=== PATIENT | male | born 1990 ===

== ENCOUNTER 2023-01-08 07:39 | Day surgery (SDC) | payer BC, SELFPAY ==
[2023-01-08] MEDS: LACTATED RINGERS 1,000 ML 200 ML IV (07:59)
[2023-01-08 08:02] VITALS: BP 125/80; PULSE 76; RESP 16; TEMP 36.4; O2SAT 99; BMI 33.6
--- NOTE | 2023-01-08 08:42 | P.HP_ITS ---
History of Present Illness History of Present Illness Date Patient Seen: 01/08/23 Time Patient Seen: 08:42 Chief complaint: Dx Colonoscopy w/band ligation Narrative: 32M with rectal bleeding here for diagnostic colonoscopy and hemorrhoidal banding. No interval change please refer to the H and P from November 2022 [facility] Medical History Anxiety Fatigue Heterozygous thalassemia Insomnia Obesity (BMI 30-39.9) Obstructive sleep apnea Snoring Family History Family/Other Loud snoring Mother Loud snoring Heart disease Depression Anxiety Social History household members: spouse Smoking Status: Former smoker alcohol intake: former Meds Home Medications and Allergies Home Medications Medication Instructions Recorded Confirmed Type sertraline 50 mg tablet 50 mg PO DAILY 11/29/22 01/08/23 History disulfiram 250 mg tablet 250 mg PO DAILY 01/08/23 01/08/23 History Allergies Allergy/AdvReac Type Severity Reaction Status Date / Time Sulfa (Sulfonamide AdvReac Unknown Verified 01/08/23 07:50 Antibiotics) Exam Vital Signs (past 8 hours): - 01/08/23 08:02 Temperature 97.6 F Pulse Rate 76 Respiratory Rate 16 Blood Pressure 125/80 Pulse Oximetry 99 Oxygen Delivery Method Room Air Oxygen Delivery Method Room Air Narrative Exam Narrative: General adult man alert oriented no acute distress Abdomen soft nontender nondistended Assessment & Plan Assessment and plan (1) Rectal bleeding: Status: Acute Assessment & Plan narrative: The patient requires colorectal screening and colonoscopy is recommended. Technical details were discussed. Risks, benefits, alternatives explained. Risks including but not limited to myocardial infarction, aspiration, bleeding, pain, missed lesion, incomplete examination, need for further radiographic studies, colonic perforation, and need for major abdominal surgery were discussed. All questions were answered to their satisfaction, and they are in agreement with this plan.
[2023-01-08 09:09] VITALS: BP 94/58; PULSE 70; RESP 20; TEMP 36.6; O2SAT 92
[2023-01-08 09:14] VITALS: BP 91/57; PULSE 66; RESP 20; O2SAT 93
--- NOTE | 2023-01-08 09:14 | P.OP.COLON_ITS ---
Operative Date/Time/Diagnoses Date of procedure: 01/08/23 Time of procedure: 09:14 Pre-op diagnosis: Rectal bleeding Post-op diagnosis: same Procedure & Clinicians Study performed: Colonoscopy and hemorrhoidal banding x2 Same procedure as scheduled: Yes Indications: 32-year-old male with rectal bleeding here for diagnostic colonoscopy and po ssible hemorrhoidal banding. Surgeon: Rob Rajput Procedure Notes Procedure in detail: The history and physical was performed/updated and the patient is ASA class is 1. The procedure was discussed in detail with the patient. Potential risks complications including infection, bleeding, missed diagnosis, perforation, need for surgery, and were explained. Their questions were answered and informed consent was obtained. Patient was brought to the procedure room and placed standard monitoring equipment. The patient's vital signs were monitored continuously throughout the entire procedure. Prior to starting time-out was performed. The patient was placed in the left lateral recumbent position. Procedural sedation was administered by anesthesia. Examination began with a thorough inspection of the perianal area there was no evidence of fissures, fistulae, external hemorrhoids or cutaneous malignancy. The colonoscopy scope was then placed into the anal canal and was advanced to the cecum, which was identified by the ileocecal valve, the appendiceal orifice and the confluence of the taenia. The scope was then slowly withdrawn examining colon thoroughly in all directions, irrigating it of any residual stool. Normal healthy colon. No masses polyps or inflammation. Rectum-grade 1 internal hemorrhoids The patient tolerated the procedure well. They will be discharged once criteria are met. The prep was of good/excellent quality. The withdrawl time was 6 minutes. Following completion of the colonoscopy hemorrhoidal banding was performed. Anoscope was placed and examination demonstrates grade 1 internal hemorrhoids of the left lateral and right posterior pedicles. Each pedicle was grasped with the suction and doubly ligated at their base. He tolerated the procedure well and was returned to recovery in stable condition. Specimen(s): none sent Impression: Internal hemorrhoids banded Post-procedure Recommendations: High fiber diet Plan for aftercare: Tylenol ibuprofen pain control Sitz bath 1-2 times daily for the next week Disposition: same day surgery
[2023-01-08 09:19] VITALS: BP 109/73; PULSE 70; RESP 24; O2SAT 95
[2023-01-08 09:23] VITALS: BP 104/76; PULSE 70; RESP 16; TEMP 36.7; O2SAT 95
== END 2023-01-08 09:37 | disposition home or self-care (01) ==
PROVIDERS: PCP Family Medicine; Referring Provider Surgery; Visit Provider Surgery
PROC: 0DJD8ZZ Inspection of Lower Intestinal Tract, Via Natural or Artificial Opening Endoscopic (ICD-10-PCS; CPT 45378; principal; 2023-01-08 08:45)
DX: K62.5 Hemorrhage of anus and rectum (principal); K64.0 First degree hemorrhoids
CPT/HCPCS: 45378; 46221; J2704

== ENCOUNTER 2023-07-24 13:02 | Day surgery (SDC) | payer BC, SELFPAY ==
--- NOTE | 2023-07-23 15:26 | PM.HP.1 ---
History of Present Illness History of Present Illness Date Patient Seen: 07/24/23 Time Patient Seen: 13:38 Chief complaint: Hemorrhoid Banding Narrative: 32-year-old healthy male with a history of hemorrhoid disease here for banding of internal hemorrhoids under anesthesia. No interval changes in health since last seen. [facility] Medical History Heterozygous thalassemia Anxiety Obstructive sleep apnea Obesity (BMI 30-39.9) Snoring Insomnia Fatigue Family History Family/Other Loud snoring Mother Loud snoring Heart disease Depression Anxiety Social History household members: spouse Smoking Status: Former smoker alcohol intake: former Meds Home Medications and Allergies Home Medications Medication Instructions Recorded Confirmed Type sertraline 50 mg tablet 50 mg PO DAILY 11/29/22 05/10/23 History acetaminophen 325 mg capsule 650 mg (2 x 325 mg) PO QID PRN 01/08/23 05/10/23 Rx (Tylenol) pain #60 caps disulfiram 250 mg tablet 250 mg PO DAILY 01/08/23 05/10/23 History docusate sodium 100 mg capsule 100 mg PO BID #30 caps 01/08/23 05/10/23 Rx (Colace) ibuprofen 200 mg tablet 400 mg (2 x 200 mg) PO Q6H #60 tabs 01/08/23 05/10/23 Rx Allergies Allergy/AdvReac Type Severity Reaction Status Date / Time Sulfa (Sulfonamide AdvReac Unknown Verified 05/10/23 14:55 Antibiotics) Exam Narrative Exam Narrative: General adult man alert oriented no acute distress Chest nonlabored respiration Extremities warm well perfused Assessment & Plan Assessment and plan (1) Internal hemorrhoids: Status: Acute Assessment & Plan narrative: 32-year-old male past medical history ROXANNE, hemorrhoids here for banding of internal hemorrhoids under anesthesia. We reviewed the procedure in detail. Procedural risks including but not limited to hemorrhage, pain, recurrence were discussed. He provides his written and verbal consent to proceed
[2023-07-24 13:25] VITALS: BP 124/71; PULSE 64; RESP 18; TEMP 36.6; O2SAT 97; BMI 33.6
[2023-07-24] MEDS: ACETAMINOPHEN 325 MG TABLET 975 MG PO (13:51)
[2023-07-24] MEDS: LACTATED RINGERS 1,000 ML 42 ML IV (14:04)
[2023-07-24 14:11] VITALS: BP 109/56; PULSE 68; RESP 14; TEMP 36.6; O2SAT 95
[2023-07-24 14:16] VITALS: BP 110/73; PULSE 63; RESP 16; O2SAT 97
[2023-07-24 14:22] VITALS: BP 110/69; PULSE 64; RESP 15; O2SAT 97
[2023-07-24 14:32] VITALS: BP 110/69; PULSE 71; RESP 14; TEMP 36.6; O2SAT 99
--- NOTE | 2023-07-24 14:32 | PM.OP.1 ---
Operative Date/Time/Diagnoses Date of procedure: 07/24/23 Time of procedure: 14:32 Pre-op diagnosis: Internal hemorrhoids Post-op diagnosis: same Procedure & Clinicians Procedure: Hemorrhoidal banding x2 Same procedure as scheduled: Yes Indications: Luis is a 32-year-old man history of hemorrhoids who is undergone 1 previous hemorrhoidal banding. He continues to have symptomatic hemorrhoids and is here for further banding. Surgeon: Rob Rajput Click Yes if Unassisted: Yes Anesthesia Type: Sedation Operative Notes Findings: Grade 2 hemorrhoids left lateral and right posterior Specimen(s): none sent Estimated Blood Loss (mL): 5 Procedure in detail: Patient was brought to the operating room placed supine on on stretcher. Anesthesia was induced and he was sedated. Time-out was performed. Lubricated anoscope was placed and exam was performed which demonstrated grade 2 hemorrhoids of the left lateral and right posterior columns. Each column was lifted using suction and then doubly ligated at its base. He tolerated the procedure well was transferred to recovery in stable condition. Complications: none Post-operative Condition: stable Disposition: same day surgery
== END 2023-07-24 14:45 | disposition home or self-care (01) ==
PROVIDERS: PCP Family Medicine; Referring Provider Surgery; Visit Provider Surgery
PROC: 0DJD8ZZ Inspection of Lower Intestinal Tract, Via Natural or Artificial Opening Endoscopic (ICD-10-PCS; CPT 45378; principal; 2023-07-24 14:15)
DX: K64.1 Second degree hemorrhoids (principal)
CPT/HCPCS: 46221; 82962; J1100; J1170; J2405; J2704

== ENCOUNTER 2023-11-01 23:06 | Observation (INO) | payer BC, SELFPAY ==
[2023-11-01 23:13] VITALS: BP 144/82; PULSE 87; TEMP 36.9; O2SAT 94; BMI 33.6
[2023-11-01 23:51] LABS: Add Manual Diff / Slide Review NO; Basophils Absolute Auto 0 /uL (0-100); Basophils Percent Auto 0.1 % (0-2); Eosinophils Absolute Auto 100 /uL (0-450); Eosinophils Percent Auto 0.7 % (2-4); Hematocrit 38.3 % (41-53); Hemoglobin 12.2 g/dL (13.5-17.5); Lymphocytes Absolute Auto 1400 /uL (1100-4500); Lymphocytes Percent Auto 8.8 % (25-40); Mean Corpuscular Hemoglobin 19.4 PG (26-34); Mean Corpuscular Volume 60.8 fL (80-100); Monocytes Absolute Auto 800 /uL (0-900); Neutrophils Absolute Auto 13200 /uL (1500-7000); Neutrophils Percent Auto 85.4 % (50-75); Platelet Count 291 X10^3/uL (150-400); Red Blood Cell Count 6.29 X10^6/uL (4.5-5.9); White Blood Cell Count 15.5 X10^3/uL (4.5-11.0)
[2023-11-02] VITALS (14 sets, daily range): BP systolic 110–137; BP diastolic 65–85; PULSE 61–84; RESP 12–18; TEMP 36.4–37.1; O2SAT 93–100; BMI 32.8
--- NOTE | 2023-11-02 | PATH_ITS ---
[facility] Accession Number: [id number] No. of containers..01 Tissue . 01 Material submitted: . appendix - APPENDIX . 01 Diagnosis: APPENDIX, APPENDECTOMY: Acute appendicitis. No evidence of neoplasm. [facility] 11/06/2023 1259 Local . 01 Electronically signed: . Mark Franco MD, PhD, Pathologist NPI- [id number] . 01 Gross description: . Received in formalin with two identifiers and appendix, is a parada vermiform appendix 6.3 x 0.8 cm with mesoappendix extending out to 2.5 cm. The serosa is parada and smooth with slightly dilated vasculature. The margin is inked blue. Sectioning reveals the lumen to be patent and filled with red-brown semi-solid material and averaging 0.2 cm in diameter. The hurley average 0.4 cm thick with no perforation or lesions identified. Ladle Cleaner sections to include the margin, one-half of the bisected distal tip, and cross-sections are submitted in cassette A1. ([id number] n [id number]) /MARCIA 11/05/2023 0910 Local . 01 Pathologist provided ICD-10: K35.80 . 01 CPT . 362915 Specimen Comment: A courtesy copy of this report has been sent to [phone] Performed at: [address] [facility] [address], [place], [place] [id number] MD Denis Thomas MD Phone: [phone]
[2023-11-02 00:07] LABS: Alanine Aminotransferase 26 IU/L (<50); Albumin 4.9 g/dL (3.5-5.0); Albumin Globulin Ratio 1.4 (1.0-2.8); Alkaline Phosphatase 89 U/L (38-126); Aspartate Aminotransferase 29 IU/L (17-59); BUN Creatinine Ratio 17.3 (6-22); Blood Urea Nitrogen 14 mg/dL (9-20); Carbon Dioxide 22 mmol/L (22-32); Chloride 108 mmol/L (98-107); Estimated Glomerular Filt Rate > 60 mL/min (>60); Globulin 3.5 g/dL (1.7-4.1); Glucose 103 mg/dL (70-100); HEMOLYSIS < 15 (0-50); Lipase 48 U/L (23-300); Potassium 4.1 mmol/L (3.4-5.1); Sodium 138 mmol/L (137-145); Total Protein 8.4 g/dL (6.3-8.2)
[2023-11-02 00:18] LABS: Anisocytosis 2+; Macrocytosis 1+; Microcytosis 1+; Platelet Estimate Adequate on smear; Target Cells 1+
--- NOTE | 2023-11-02 02:21 | ED_ITS ---
HPI - Abdominal Pain General Chief Complaint: Abdominal Pain Stated Complaint: ABD and rt side pain Time Seen by Provider: 11/02/23 00:50 Source: patient Mode of arrival: Ambulatory History of Present Illness HPI narrative: 32-year-old without history of prior abdominal pelvic surgeries, complains of central abdominal pain onset approximately 5:30 p.m. yesterday, became more right-sided last few hours, more in the right upper quadrant now. No known history of appendix problems. No gallbladder problems known. No history of kidney stones. No dysuria or frequency of urination. No new activities, trauma, lifting. Denies cough fever chills shortness of breath. No associated nausea or vomiting. Last bowel movement yesterday unremarkable. No black or red stools. No loose stools. No history of constipation. No history of Crohn's disease, inflammatory bowel disease. Could not tried any specific treatment, pain slightly improved but still present. Related Data Home Medications Medication Instructions Recorded Confirmed sertraline 50 mg tablet 100 mg PO DAILY 11/29/22 11/02/23 Previous Rx's Medication Instructions Recorded acetaminophen 325 mg capsule 650 mg (2 x 325 mg) PO QID PRN 07/24/23 (Tylenol) pain #60 caps ibuprofen 200 mg tablet 400 mg (2 x 200 mg) PO Q6H #60 tabs 07/24/23 celecoxib 200 mg capsule (Celebrex) 200 mg PO BID #20 caps 11/02/23 docusate sodium 100 mg capsule 100 mg PO BID #30 caps 11/02/23 (Colace) oxycodone 5 mg tablet 5 mg PO Q6H PRN pain #20 tabs 11/02/23 Allergies Allergy/AdvReac Type Severity Reaction Status Date / Time Sulfa (Sulfonamide AdvReac Unknown Verified 05/10/23 14:55 Antibiotics) Review of Systems Review of Systems Narrative: Per HPI Patient History Medical History Heterozygous thalassemia Anxiety Obstructive sleep apnea Obesity (BMI 30-39.9) Snoring Insomnia Fatigue Family History Family/Other Loud snoring Mother Loud snoring Heart disease Depression Anxiety Social History household members: spouse Smoking Status: Former smoker alcohol intake: former Smoking Status: Former smoker alcohol intake frequency: a few times a week Substance Use Type: marijuana Exam Narrative Exam Narrative: GENERAL: Well-developed patient, in mild distress. HEAD: Atraumatic. Normocephalic. EYES: Pupils equal round and reactive. Extraocular motions intact. No scleral icterus. No injection or drainage. ENT: Nose without bleeding, purulent drainage. Throat without erythema, tonsillar hypertrophy or exudate. Airway patent. NECK: Trachea midline. Non tender CARDIOVASCULAR: Regular rate and rhythm without murmurs, gallops, or rubs. RESPIRATORY: Clear to auscultation. Breath sounds equal bilaterally. No wheezes, rales, or rhonchi. GASTROINTESTINAL: Some tenderness right middle quadrant abdomen, right upper quadrant abdomen, less so right lower quadrant. No tenderness epigastrium or periumbilical or left-sided. No guarding or rebound tenderness. No obvious fluid wave. EXTREMITIES: No edema or joint tenderness. BACK: Nontender without deformity or crepitance. No flank tenderness. NEURO: AOx3. SKIN: No rash or erythema of visible areas Initial Vital Signs Initial Vital Signs: Vital Signs Temperature 98.4 F 11/01/23 23:13 Pulse Rate 87 11/01/23 23:13 Blood Pressure 144/82 H 11/01/23 23:13 Pulse Oximetry 94 11/01/23 23:13 Oxygen Delivery Method Room Air 11/01/23 23:13 Course Orders Ordered: Discontinued Medications Acetaminophen (Acetaminophen 325 Mg Tablet) 650 mg PO Q6H PRN PRN Reason: Fever/Mild Pain (1-3) Bupivacaine HCl (Bupivacaine 0.25% (Pf) Vial) 30 ml INJ NOW ONE Stop: 11/02/23 11:27 Last Admin: 11/02/23 11:26 Dose: 30 ml Documented By: REJI Dexamethasone (Dexamethasone 10 Mg/Ml Vial) 8 mg IV NOW PRN PRN Reason: Nausea And Vomiting Fentanyl (Fentanyl 100 Mcg/2 Ml Inj) 0 mcg IV Q5MIN PRN PRN Reason: Pain, Severe (7-10) Fentanyl (Fentanyl 100 Mcg/2 Ml Inj) 0 mcg IV Q5M PRN PRN Reason: Pain, Moderate (4-6) Hydromorphone HCl (Hydromorphone 0.5 Mg Inj) 0.5 mg IV Q2H PRN PRN Reason: Pain, Severe (7-10) Hydromorphone HCl (Hydromorphone 1 Mg Inj) 0 mg IV Q5MIN PRN PRN Reason: Pain, Mild (1-3) Hydromorphone HCl (Hydromorphone 1 Mg Inj) 0 mg IV Q5MIN PRN PRN Reason: Pain, Moderate (4-6) Piperacillin Sod/Tazobactam (Sod 4.5 gm/ Sodium Chloride) 100 mls @ 200 mls/hr IV NOW ONE Stop: 11/02/23 05:09 Last Infusion: 11/02/23 06:12 Dose: Infused Documented By: Admin: 11/02/23 05:42 Dose: 200 mls/hr Documented By: STORMY Piperacillin Sod/Tazobactam (Sod 3.375 gm/ Sodium Chloride) 100 mls @ 200 mls/hr IV NOW ONE Stop: 11/02/23 11:14 Last Infusion: 11/02/23 11:15 Dose: Infused Documented By: Admin: 11/02/23 11:10 Dose: 200 mls/hr Documented By: TOSHIA Lactated Ringer's (Lactated Ringers) 1,000 mls @ 42 mls/hr IV NOW ONE Stop: 11/03/23 10:38 Last Infusion: 11/02/23 12:18 Dose: Infused Documented By: Admin: 11/02/23 10:50 Dose: 42 mls/hr Documented By: CALOS Acetaminophen (Ofirmev) 1,000 mg in 100 mls @ 400 mls/hr IV NOW ONE Stop: 11/02/23 11:55 Last Admin: 11/02/23 12:15 Dose: 400 mls/hr Documented By: CALOS Ibuprofen (Ibuprofen 600 Mg Tablet) 600 mg PO Q6H PRN PRN Reason: Fever/Mild Pain (1-3) Metoclopramide HCl (Metoclopramide 10 Mg/2 Ml Inj) 10 mg IV NOW PRN PRN Reason: Nausea And Vomiting Naloxone HCl (Naloxone 0.4 Mg/Ml Vial) 0.2 mg IV Q2MIN PRN PRN Reason: Opiate Reversal Ondansetron HCl (Ondansetron 4 Mg/2 Ml Inj) 4 mg IV NOW PRN PRN Reason: Nausea And Vomiting Ondansetron HCl (Ondansetron 4 Mg Odt) 4 mg PO NOW PRN PRN Reason: Nausea And Vomiting Ondansetron HCl (Ondansetron 4 Mg/2 Ml Inj) 4 mg IV NOW PRN PRN Reason: Nausea And Vomiting Oxycodone HCl (Oxycodone Ir 5 Mg Tablet) 5 mg PO Q3H PRN PRN Reason: Pain, Moderate (4-6) Oxycodone HCl (Oxycodone Ir 5 Mg Tablet) 10 mg PO PACUNOW PRN PRN Reason: Mild or moderate pain Vital Signs Vital signs: Vital Signs - 8 hr 11/01/23 23:13 11/02/23 01:00 11/02/23 02:00 Temperature 98.4 F 98.0 F Pulse Rate 87 82 69 Respiratory Rate 18 18 Blood Pressure 144/82 H 135/82 137/82 Pulse Oximetry 94 99 100 Oxygen Delivery Method Room Air Room Air Room Air 11/02/23 03:16 Temperature Pulse Rate 70 Respiratory Rate 18 Blood Pressure 130/79 Pulse Oximetry 99 Oxygen Delivery Method MDM - Abdominal Pain Lab Data Attestation: I reviewed the patient's lab results. Lab results narrative: White blood cell count 17297, chemistries unremarkable, LFTs normal, urine dip negative 11/01/23 23:37 11/01/23 23:37 Labs: Lab Results 11/01/23 11/02/23 Range/Units 23:37 01:45 WBC 15.5 H (4.5-11.0) X10^3/uL RBC 6.29 H (4.5-5.9) X10^6/uL Hgb 12.2 L (13.5-17.5) g/dL Hct 38.3 L (41-53) % MCV 60.8 L (80-100) fL MCH 19.4 L (26-34) PG MCHC 32.0 (30-36) % RDW 17.0 H (11.6-14.8) % Plt Count 291 (150-400) X10^3/uL Neut % (Auto) 85.4 H (50-75) % Lymph % (Auto) 8.8 L (25-40) % [place] % (Auto) 5.0 (3-14) % Eos % (Auto) 0.7 L (2-4) % Baso % (Auto) 0.1 (0-2) % Neut # (Auto) 02544 H (8042-8661) /uL Lymph # (Auto) 1400 (0698-5629) /uL [place] # (Auto) 800 (0-900) /uL Eos # (Auto) 100 (0-450) /uL Baso # (Auto) 0 (0-100) /uL Platelet Estimate Adequate on smear RBC Morphology See below Anisocytosis 2+ H Microcytosis 1+ H Macrocytosis 1+ H Target Cells 1+ H Sodium 138 (137-145) mmol/L Potassium 4.1 (3.4-5.1) mmol/L Chloride 108 H (98-107) mmol/L Carbon Dioxide 22 (22-32) mmol/L BUN 14 (9-20) mg/dL Creatinine 0.81 (0.66-1.25) mg/dL Estimated GFR > 60 (>60) mL/min BUN/Creatinine Ratio 17.3 (6-22) Glucose 103 H (70-100) mg/dL Calcium 9.0 (8.4-10.2) mg/dL Total Bilirubin 1.0 (0.2-1.3) mg/dL AST 29 (17-59) IU/L ALT 26 (<50) IU/L Alkaline Phosphatase 89 (38-126) U/L Total Protein 8.4 H (6.3-8.2) g/dL Albumin 4.9 (3.5-5.0) g/dL Globulin 3.5 (1.7-4.1) g/dL Albumin/Globulin Ratio 1.4 (1.0-2.8) Lipase 48 (23-300) U/L Urine RBC None seen (0-5/HPF) Urine WBC None seen (0-5/HPF) Ur Squamous Epith Cells 0-1 /hpf (0-5/HPF) Urine Bacteria None seen (None) Ur Culture Indicated? Cult not indicated Vol Urine Centrifuged 10ml (spun) Point of care testing: Urine Dip Bedside Urine Glucose Negative Bedside Urine Bilirubin - Negative Bedside Urine Ketone +/- 5 Urine Specific [place] 1.025 Bedside Urine Occult Blood - Negative Bedside Urine pH 6.0 Bedside Urine Protein - Negative Bedside Urine Urobilinogen - Negative Bedside Urine Nitrite - Negative Bedside Urine Leukocytes - Negative Esterase MDM Narrative Medical decision making narrative: 32-year-old male with atraumatic abdominal pain, initially central, now more right-sided but in right upper quadrant. No known history of gallbladder problems or kidney stones, no prior abdominal pelvic surgeries. Some tenderness right upper quadrant current, some right middle quadrant, not in right lower quadrant. DX consider appendicitis, biliary colic, cholecystitis, urinary tract infection, ureteral stone, colitis, diverticulitis, constipation, adenitis, other. Renal function adequate, CT abdomen and pelvis ordered. Patient declines pain medication for now. Keep NPO CT abdomen and pelvis with IV contrast. Impressions: ?Fluid distended appendix measuring up to 11 mm in width. Subtle fat stranding in the vicinity of the appendiceal tip. No evidence of appendicolith. In the appropriate clinical context, findings are suggestive of acute uncomplicated appendicitis. ? See tele radiology report IV Zosyn ordered Report results discussed with patient, acute appendicitis suspected by imaging, some tenderness right middle quadrant, not really in right lower quadrant. We will contact surgery Case discussed with Dr. Rajput surgery, admit to his service. Keep NPO. Critical Care Time Critical Care Time Critical Care Time: Yes Total Critical Care Time: 35 Attestation: The high probability of a clinically significant, sudden or life threatening deterioration of the [abdominal pelvic, genitourinary] system(s) required my full and direct attention, intervention and personal management. The aggregate critical care time was [35] minutes. This time is in addition to time spent performing reported procedures but includes the following: [x] Data Review and interpretation [x] Patient assessment and monitoring of vital signs [x] Documentation [x] Medication orders and management Discharge Plan Departure Patient Disposition: Admitted as Observation Clinical Impression: Abdominal pain Acute appendicitis Qualifiers: Acute appendicitis type: unspecified acute appendicitis type Qualified Code(s): K35.80 - Unspecified acute appendicitis Admit Date/Time: 11/02/23 05:22 Admit Provider: Rob Rajput
--- NOTE | 2023-11-02 02:38 | DI.CT.S_ITS ---
PROCEDURE: CT ABDOMEN PELVIS W CON INDICATIONS: central->R abd pain, eval appy TECHNIQUE: After the administration of intravenous contrast, axial sections acquired from the lung bases to the pubic symphysis. Coronal and sagittal reformats were performed. For radiation dose reduction, the following was used: automated exposure control, adjustment of mA and/or kV according to patient size. COMPARISON: None. FINDINGS: Image quality: Diagnostic Lower chest: Unremarkable lung bases Liver: Unremarkable Gallbladder and biliary system: Unremarkable, nondilated Pancreas: No ductal dilation Spleen: Nonenlarged Adrenals: No discrete nodules Kidneys: No solid mass or hydronephrosis Vessels and lymph nodes: The main portal vein is patent. No abdominal aortic aneurysm. No pathologic lymph nodes by size criteria. Bowel and peritoneum: No evidence of small bowel obstruction. No pathologic ascites or drainable abscess. Mildly hyperemic appendix measuring 8-9 mm. Body wall: Small fat containing umbilical hernia Pelvis: Bladder is unremarkable. Prostate not well evaluated on this study Bones: No acute or suspicious osseous finding. IMPRESSION: Acute uncomplicated appendicitis. Agree with prelim report. No abscess or small bowel obstruction. Dictated by: Donato Marie M.D. on 11/02/2023 at 8:24 Approved by: Donato Marie M.D. on 11/02/2023 at 8:27
[2023-11-02 02:59] LABS: Bacteria Urine None Seen; Culture Indicated Urine Cult Not Indicated; RBC Urine None Seen (0-5/HPF); Squamous Epithelial Cell Urine 0-1 /HPF (0-5/HPF); Urine Volume 10mL (spun); WBC Urine None Seen (0-5/HPF)
[2023-11-02] MEDS: PIPERACILLIN/TAZO 4.5 GM in SODIUM CHLORIDE 0.9% 100 ML IV (05:42)
--- NOTE | 2023-11-02 10:10 | PC.NURSE ---
Patient picked up by OR nurse, alert/oriented x4,in no apparent distress.
--- NOTE | 2023-11-02 10:29 | P.HP_ITS ---
History of Present Illness History of Present Illness Date Patient Seen: 11/02/23 Chief complaint: ABD and rt side pain Narrative: Luis Tam is a 32-year-old man PMH ROXANNE with acute appendicitis. For the last several days he has had vague abdominal discomfort with associated fatigue and anorexia. Yesterday his pain became significantly worse primarily of the periumbilical area and finally migrating to the right lower quadrant. Presented to [facility] Emergency Department for further evaluation and initial workup was significant for leukocytosis, WBC [address] shift[address] A CT abdomen pelvis demonstrates acute appendicitis without abscess. No prior abdominal surgery. He has had prior orthopedic surgery which he tolerated without anesthetic or bleeding issues. [facility] Medical History Heterozygous thalassemia Anxiety Obstructive sleep apnea Obesity (BMI 30-39.9) Snoring Insomnia Fatigue Family History Family/Other Loud snoring Mother Loud snoring Heart disease Depression Anxiety Social History household members: spouse Smoking Status: Former smoker alcohol intake: former Meds Home Medications and Allergies Home Medications Medication Instructions Recorded Confirmed Type sertraline 50 mg tablet 100 mg PO DAILY 11/29/22 11/02/23 History acetaminophen 325 mg capsule 650 mg (2 x 325 mg) PO QID PRN 07/24/23 11/02/23 Rx (Tylenol) pain #60 caps ibuprofen 200 mg tablet 400 mg (2 x 200 mg) PO Q6H #60 tabs 07/24/23 11/02/23 Rx Allergies Allergy/AdvReac Type Severity Reaction Status Date / Time Sulfa (Sulfonamide AdvReac Unknown Verified 05/10/23 14:55 Antibiotics) Exam Vital Signs (past 8 hours): - 11/02/23 03:15 11/02/23 03:15 11/02/23 03:16 Temperature Pulse Rate 69 70 Respiratory Rate 18 Blood Pressure 130/79 130/79 Pulse Oximetry 97 99 Oxygen Delivery Method Oxygen Flow Rate 11/02/23 05:00 11/02/23 05:56 11/02/23 06:20 Temperature 98.7 F Pulse Rate 70 77 Respiratory Rate 17 16 Blood Pressure 130/78 126/82 Pulse Oximetry 100 95 Oxygen Delivery Method Room Air Room Air Room Air Oxygen Flow Rate 11/02/23 06:36 11/02/23 07:00 11/02/23 07:45 Temperature 98.1 F 97.5 F L Pulse Rate 61 61 Respiratory Rate 16 16 Blood Pressure 127/74 110/65 Pulse Oximetry 96 99 Oxygen Delivery Method Room Air Oxygen Flow Rate 0 Oxygen Delivery Method Room Air Oxygen Flow Rate 0 Narrative Exam Narrative: GENERAL: A well nourished, well developed adult man, resting comfortably, in no acute distress. HEENT: Normocephalic, atraumatic. No scleral icterus CHEST: Rising symmetrically. No audible wheezes CARDIOVASCULAR: Warm and well perfused. Regular rate ABDOMEN: Tender right lower quadrant without peritonitis EXTREMITIES: Normal tone and without edema. NEUROLOGIC: Moving all extremities spontaneously. No gross motor deficits. Objective Labs 11/01/23 23:37 11/01/23 23:37 Labs: Laboratory Results - last 24 hr 11/01/23 11/02/23 23:37 01:45 WBC 15.5 H RBC 6.29 H Hgb 12.2 L Hct 38.3 L MCV 60.8 L MCH 19.4 L MCHC 32.0 RDW 17.0 H Plt Count 291 Neut % (Auto) 85.4 H Lymph % (Auto) 8.8 L Hodgeman % (Auto) 5.0 Eos % (Auto) 0.7 L Baso % (Auto) 0.1 Neut # (Auto) 07328 H Lymph # (Auto) 1400 Hodgeman # (Auto) 800 Eos # (Auto) 100 Baso # (Auto) 0 Platelet Estimate Adequate on smear RBC Morphology See below Anisocytosis 2+ H Microcytosis 1+ H Macrocytosis 1+ H Target Cells 1+ H Sodium 138 Potassium 4.1 Chloride 108 H Carbon Dioxide 22 BUN 14 Creatinine 0.81 Estimated GFR > 60 BUN/Creatinine Ratio 17.3 Glucose 103 H Calcium 9.0 Total Bilirubin 1.0 AST 29 ALT 26 Alkaline Phosphatase 89 Total Protein 8.4 H Albumin 4.9 Globulin 3.5 Albumin/Globulin Ratio 1.4 Lipase 48 Urine RBC None seen Urine WBC None seen Ur Squamous Epith Cells 0-1 /hpf Urine Bacteria None seen Ur Culture Indicated? Cult not indicated Vol Urine Centrifuged 10ml (spun) Assessment & Plan Assessment and plan (1) Acute appendicitis: Problem details: 32M PMH ROXANNE with symptoms and radiographic findings consistent with acute uncomplicated appendicitis. Had a lengthy discussion with the patient and his significant other in regards to the management of acute appendicitis. We discussed both surgical therapy and medical management with antibiotic therapy. We talked about the risk of recurrent appendicitis with antibiotic management and we discussed risks associated with surgery including but not limited to infection, hemorrhage, staple line leak, damage to surrounding structures, conversion to open. Following discussion his preference is to proceed with appendectomy. Their questions have been answered and he provides his written and verbal consent to proceed. I anticipate he will be able to discharge home later this afternoon. Laparoscopic appendectomy Qualifiers: Acute appendicitis type: unspecified acute appendicitis type Qualified Code(s): K35.80 - Unspecified acute appendicitis Status: Acute
[2023-11-02] MEDS: LACTATED RINGERS 1,000 ML 42 ML IV (10:50)
[2023-11-02] MEDS: PIPERACILLIN/TAZO 3.375 GM in SODIUM CHLORIDE 0.9% 100 ML IV (11:10)
--- NOTE | 2023-11-02 11:21 | SUR.OPER ---
Supine on padded OR bed, head on pillow, right arm secured on padded arm board at <90 degrees abduction, left arm padded and tucked at side, legs uncrossed, safety belt at thigh, tape over blanket over lower legs.
[2023-11-02] MEDS: BUPIVACAINE 0.25% (PF) VIAL 30 ML INJ (11:26)
--- NOTE | 2023-11-02 11:59 | PM.OP.1 ---
Operative Date/Time/Diagnoses Date of procedure: 11/02/23 Time of procedure: 11:59 Pre-op diagnosis: Acute appendicitis Post-op diagnosis: same Procedure & Clinicians Procedure: Laparoscopic appendectomy Same procedure as scheduled: Yes Indications: 32-year-old man with symptoms and radiographic findings consistent with acute appendicitis. Following discussion regarding the risks benefits and alternatives to surgical therapy including medical therapy with antibiotic he elects to proceed with surgery. Surgeon: Rob Rajput Click Yes if Unassisted: Yes Anesthesia Type: General Operative Notes Findings: Acute non perforated appendicitis Specimen(s): other (Appendix) Estimated Blood Loss (mL): 20 Procedure in detail: Patient was brought to the operating room placed supine on the table. Bilateral lower extremity compression devices were applied. Anesthesia was induced and they intubated with an endotracheal tube. They received 3.375 g of Zosyn prior to skin incision. The left arm was tucked and appropriately padded. They were prepped and draped in sterile fashion. Time-out was performed. An infraumbilical incision was made the umbilical stalk was grasped and elevated and incision was made and the abdomen was entered atraumatically. A 12 mm balloon trocar was then placed through the incision and pneumoperitoneum of 14 mm Hg was established. The scope was then inserted and the abdomen inspected, there was no evidence of injury upon entry. Two 5 mm ports were placed under direct visualization, one in the left lower quadrant and second in the lower midline. A thorough laparoscopic evaluation was performed inspecting all four quadrants. The patient was then tilted right side up. The small bowel was then swept to the upper aspect of the abdomen. The tenie were followed to the base of the cecum where the appendix was identified. The appendix was was mobilized from its lateral attachments. It was acutely inflamed but not perforated. The appendix was grasped and a window within the mesentery was made at the base of the appendix using the [place] dissector with care to avoid injuring the cecum. The mesoappendix was then divided using the endo-stapler with a staple length of 2.5 mm-white load. The mesenteric staple line was inspected for hemostasis. The appendix was then amputated flush at the cecum using the endo-stapler blue load. The specimen was retrieved using a endoscopic retrieval bag through the 10 mm infra-umbilical port. The right paracolic gutter and the pouch of Ruben were irrigated The 5 mm ports were then removed under direct visualization. The umbilical fascial incision was closed with 0 Vicryl in a figure-eight fashion. The skin wounds were irrigated and closed with 4-0 Monocryl followed by the application of Dermabond. Sponge instrument count at the end of the operation was correct. The patient tolerated procedure well was extubated and transferred to the postoperative care unit in stable condition. Complications: none Post-operative Condition: stable Disposition: other (Discharge home)
[2023-11-02] MEDS: ACETAMINOPHEN IV 1,000 MG/100 ML VIAL 400 MG IV (12:15)
--- NOTE | 2023-11-02 13:54 | PC.NURSE ---
PATIENT ATE LUNCH, URINATED, AND WALKED AROUND UNIT WITH SPOUSE. DENIES PAIN, WISHES TO D/C HOME.IV PULLED AND PAPERWORK COMPLETE. D/C HOME WITH
== END 2023-11-02 13:56 | disposition home or self-care (01) ==
LOC: ED 11-02 05:21 → AC 11-02 06:22
PROVIDERS: Admitting Provider Surgery; Emergency Provider Emergency Medicine; PCP Family Medicine; Referring Provider Emergency Medicine; Visit Provider Surgery
PROC: 0DTJ4ZZ Resection of Appendix, Percutaneous Endoscopic Approach (ICD-10-PCS; CPT 44970; principal; 2023-11-02 11:30)
DX: K35.80 Unspecified acute appendicitis (principal); G47.33 Obstructive sleep apnea (adult) (pediatric)
CPT/HCPCS: 44970; 36415; 74177; 80053; 81003; 81015; 83690; 85025; 96365; 99283; 99284; G0378; J0136; J1100; J1170; J1885; J2405; J2543; J2704; J3490; Q9967